=== PATIENT | female | born 2000 | race Two or more races ===

== ENCOUNTER 2023-07-12 15:36 | Emergency (ER) | payer OTHER ==
[~2023-07-12] VITALS: Ht 170.2 cm; Wt 56.7 kg
[2023-07-12 17:22] LABS: URINE APPEARANCE Cloudy; URINE BILIRRUBIN Negative (NEGATIVE); URINE BLOOD Moderate; URINE COLOR Yellow; URINE GLUCOSE Negative (NEGATIVE); URINE LEUKOCYTE Moderate; URINE NITRATE Negative; URINE PROTEIN Trace (NEGATIVE); URINE UROBILINOGEN 0.2 E.U./dl
[2023-07-12 17:26] LABS: URINE EPITHELIAL CELLS 72.5 uL (0.0-38.8); URINE RBC 127.1 uL (0.0-20.8); URINE WBC 321.4 uL (0.0-23.2)
[2023-07-12 17:40] LABS: URINE MUCUS SCANT
== END 2023-07-12 18:18 | disposition home or self-care (01) ==
LOC: ER 15:36
PROVIDERS: General Practice
DX: N39.0 Urinary tract infection, site not specified (principal)